=== PATIENT | female | born 1995 | race Hispanic/Latino ===

== ENCOUNTER 2019-01-01 04:06 | Emergency (ER) | payer OTHER, SELFPAY ==
[2019-01-01] MEDS ORDERED: Ibuprofen 800 MG TAB ONE (04:35)
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
== END 2019-01-01 05:29 | disposition home or self-care (01) ==
LOC: ERS 04:06
DX: S00.83XA Contusion of other part of head, initial encounter (principal); S30.0XXA Contusion of lower back and pelvis, initial encounter; V43.62XA Car passenger injured in collision with other type car in traffic accident, initial encounter
CPT/HCPCS: 70486; 72100